=== PATIENT | female | born 1940 | race Caucasian/White ===

== ENCOUNTER 2016-04-26 14:17 | Emergency (ER) | payer MEDICARE, OTHER ==
[~2016-04-26] VITALS: Ht 160 cm; Wt 93.0 kg
[2016-04-26 14:29] VITALS: BP 132/75; PULSE 98; RESP 18; TEMP 98.5; O2SAT 92
[2016-04-26] MEDS ORDERED: ASPI325T PO (15:06)
[2016-04-26] MEDS ORDERED: LIPI20TA PO (15:06)
[2016-04-26] MEDS ORDERED: ALBUAER3 INH (15:06)
[2016-04-26] MEDS ORDERED: AMLO5TAB2 PO (15:06)
[2016-04-26] MEDS ORDERED: GLIM4TAB PO (15:06)
[2016-04-26] MEDS ORDERED: JANU50TA8 PO (15:06)
[2016-04-26] MEDS ORDERED: FURO20TA PO (15:06)
[2016-04-26] MEDS ORDERED: VALS1TAB70 PO (15:06)
--- NOTE | 2016-04-26 15:08 | PD ---
HPI Chief Complaint: Cold / Flu Symptoms Time Seen by Provider: 14:54 Travel History International Travel<30 days: No Contact w/Intl Traveler<30days: No Traveled to known affect area: No History of Present Illness HPI 76-year-old female complains of coughing congestion right ear pain bilateral hand feet pain. Patient states that the symptoms started about week ago. Patient states that she has sharp pain localized to right ear and mild sore throat. Patient states that she had productive cough the past week. Patient denies any chest pain or shortness of breath. Patient denies abdominal pain. Patient denies any nausea vomiting diarrhea. Patient complained of itching and painful rash on both hands or feet for the past week. Patient denies any new exposure. Patient denies any history of psoriasis or dermatitis. PFSH Past Medical History Diabetes: Yes Social History Tobacco Use: No Allergies-Medications (Allergen,Severity, Reaction): Uncoded Allergies: NONE (Allergy, Unknown, 10/30/02) Reported Meds & Prescriptions Reported Meds & Active Scripts Active Tessalon Perles (Benzonatate) 100 Mg Cap 200 Mg PO TID PRN Zithromax Z-Brayan (Azithromycin) 250 Mg Dspk 250 Mg PO DIRECTED 500 MG (2 tabs) day 1, then 1 tab days 2-5. Triamcinolone Topical (Triamcinolone Acetonide) 0.1% Cream 1 Applic TOPICAL BID Reported Janumet (Sitagliptin-Metformin) 50-1,000 Mg Tab 1 Tab PO BID Aspirin 325 Mg Tab 325 Mg PO DAILY Proair Hfa 8.5 GM Inh (Albuterol Sulfate) 90 Mcg/Act Aer 2 Puff INH Q4-6H PRN 108 mcg/actuation Valsartan 320 Mg Tab 320 Mg PO DAILY Furosemide 20 Mg Tab 20 Mg PO DAILY Lipitor (Atorvastatin Calcium) 20 Mg Tab 20 Mg PO HS Glimepiride 4 Mg Tab 4 Mg PO BIDAC Amlodipine (Amlodipine Besylate) 5 Mg Tab 5 Mg PO BID Review of Systems General / Constitutional: No: Fever Eyes: No: Visual changes HENT: Positive: Sore Throat, Earache, No: Headaches Cardiovascular: No: Chest Pain or Discomfort Respiratory: Positive: Cough, No: Shortness of Breath Gastrointestinal: No: Abdominal Pain Genitourinary: No: Dysuria Musculoskeletal: No: Pain Skin: No Rash Neurologic: No: Weakness Psychiatric: No: Depression Endocrine: No: Polydipsia Hematologic/Lymphatic: No: Easy Bruising Physical Exam Narrative GENERAL: Well-nourished, well-developed patient. SKIN: Warm and dry. Patient had thick scaly rash on bilateral arm and bilateral feet. Mild tenderness on palpation. No redness no heat no discharge. HEAD: Normocephalic. EYES: No scleral icterus. No injection or drainage. Right ear canal erythematous no exudate. Right TM is clear. Throat: Nonerythematous. NECK: Supple, trachea midline. No JVD or lymphadenopathy. CARDIOVASCULAR: Regular rate and rhythm without murmurs, gallops, or rubs. RESPIRATORY: Breath sounds equal bilaterally. No accessory muscle use. GASTROINTESTINAL: Abdomen soft, non-tender, nondistended. MUSCULOSKELETAL: No cyanosis, or edema. BACK: Nontender without obvious deformity. No CVA tenderness. Data Data Last Documented VS Vital Signs Date Time Temp Pulse Resp B/P Pulse Ox O2 Delivery O2 Flow Rate FiO2 04/26/16 16:05 96 19 107/57 94 Room Air 04/26/16 14:29 98.5 Orders Urinalysis - C+S If Indicated (04/26/16 15:03) Influenzae A/B Antigen (04/26/16 15:03) Chest, Single Ap (04/26/16 15:03) Levofloxacin (Levaquin) (04/26/16 16:00) Labs Laboratory Tests Test 04/26/16 15:10 Urine Color YELLOW Urine Turbidity CLEAR Urine pH 6.5 Urine Specific [place] 1.017 Urine Protein NEG mg/dL Urine Glucose (UA) NEG mg/dL Urine Ketones NEG mg/dL Urine Occult Blood NEG Urine Nitrite NEG Urine Bilirubin NEG Urine Leukocyte Esterase NEG Urine WBC 0-2 /hpf Urine Squamous Epithelial 0-5 /hpf Cells Microscopic Urinalysis Comment CULT NOT INDICATED MDM Medical Decision Making Medical Screen Exam Complete: Yes Emergency Medical Condition: Yes Interpretation(s) Last Impressions Chest X-Ray 04/26/16 1503 Signed Impressions: Service Date/Time: Tuesday, April 26, 2016 15:23 - CONCLUSION: 1. No acute cardiopulmonary abnormality is identified. 2. Dextroscoliosis of the thoracic spine. Neno Khan MD 1546 PM. UA is negative. Influenza AB antigen negative. Differential Diagnosis Differential diagnosis including URI, bronchitis, pneumonia, viral syndrome, dermatitis, psoriasis. Narrative Course 76-year-old female with painful rash on hand and feet and productive cough. Levaquin 750 mg by mouth given. Diagnosis Primary Impression: Bronchitis Additional Impression: Dermatitis Patient Instructions: General Instructions Additional Instructions: Medications as directed. Follow-up with personal physician and customer logistics manager. Return if worse. Med/Other Pt SpecificInfo: Prescription(s) given Scripts Benzonatate (Tessalon Perles)100 Mg [id number] Mg PO TID PRN (COUGH) #21 CAP Ref 0 Prov:Holland Maldonado MD 04/26/16 Azithromycin (Zithromax Z-Brayan)250 Mg [id number] Mg PO DIRECTED #1 DSPK Ref 0 500 MG (2 tabs) day 1, then 1 tab days 2-5. Prov:Holland Maldonado MD 04/26/16 Triamcinolone Topical 0.1% Cream1 Applic TOPICAL BID #15 GM Ref 0 Prov:Holland Maldonado MD 04/26/16 Disposition: 01 DISCHARGE HOME Condition: Stable Holland Maldonado MD Apr 26, 2016 15:08
[2016-04-26 15:27] LABS: BLOOD, URINE NEG (NEG); GLUCOSE,URINE NEG (NEG); KETONE, URINE NEG (NEG); NITRITE,URINE NEG (NEG); PH, URINE 6.5 (5.0-8.5)
[2016-04-26 15:29] LABS: URINE COLOR YELLOW (YELLW/STRAW)
--- NOTE | 2016-04-26 15:30 | RADHPO ---
EXAM DATE/TIME: 04/26/2016 15:23 [facility] COMPARISON: No previous studies available for comparison. INDICATIONS : Cough MEDICAL HISTORY : Diabetes mellitus type II. SURGICAL HISTORY : None. ENCOUNTER: Initial ACUITY: 1 day PAIN SCORE: 0/10 LOCATION: Bilateral chest FINDINGS: Rotated and mildly underinflated AP view of the chest demonstrates a normal-sized cardiac silhouette. No effusion, consolidation, or pneumothorax is visualized. Bones and soft tissues demonstrate no acu te finding. There is dextroscoliosis of the thoracic spine. Proximal right humerus hardware is presen t related to prior ORIF. CONCLUSION: 1. No acute cardiopulmonary abnormality is identified. 2. Dextroscoliosis of the thoracic spine. Neno Khan MD on April 26, 2016 at 15:27 Board Certified Radiologist. This report was verified electronically.
[2016-04-26 15:32] LABS: COMMENT (UR) CULT NOT INDICATED; CULTURE IF INDICATED CULT NOT INDICATED; SQUAMOUS EPITHELIAL CELL URINE 0-5 /hpf (0-5); WBC, URINE 0-2 /hpf (0-5)
[2016-04-26] MEDS ORDERED: ZITHTAB PO (15:56)
[2016-04-26] MEDS ORDERED: TRIA.1%T TOPICAL (15:56)
[2016-04-26] MEDS ORDERED: BENZ100 PO (15:56)
[2016-04-26] MEDS ORDERED: LEVOFLOXACIN 750 MG TAB PO ONE (16:00)
[2016-04-26 16:05] VITALS: BP 107/57; PULSE 96; RESP 19; O2SAT 94
== END 2016-04-26 16:15 | disposition home or self-care (01) ==
LOC: PHED 14:17
DX: J40 Bronchitis, not specified as acute or chronic (principal); L30.9 Dermatitis, unspecified; H92.01 Otalgia, right ear
CPT/HCPCS: 71010; 81001; 87804; 99283